=== PATIENT | female | born 1995 | race Hispanic/Latino ===

== ENCOUNTER 2017-08-11 10:53 | Emergency (ER) | payer OTHER ==
[2017-08-11] MEDS ORDERED: OCTYL 2-CYANOACRYLATE 1 EACH TP ONE (11:26)
[2017-08-11] MEDS ORDERED: TETANUS/DIPHTHERIA TOXOID [ADULT] 0.5 ML VIAL IM ONE (11:45)
== END 2017-08-11 12:00 | disposition home or self-care (01) ==
LOC: EDH 10:53
DX: S81.012A Laceration without foreign body, left knee, initial encounter (principal); Z88.0 Allergy status to penicillin; Z88.6 Allergy status to analgesic agent; W18.39XA Other fall on same level, initial encounter; Y93.89 Activity, other specified; Y92.098 Other place in other non-institutional residence as the place of occurrence of the external cause; Y99.8 Other external cause status
CPT/HCPCS: 12001; 90471; 90714